=== PATIENT | female | born 1950 | race Caucasian/White ===

== ENCOUNTER 2017-03-21 14:58 | Inpatient (IN) | payer SELFPAY ==
[~2017-03-21] VITALS: Ht 160 cm; Wt 75.0 kg
[~2017-03-21 14:58] MED LIST: ISON300T4 PO; LEVO100T5 PO; RIFA300C3 PO; VITA1CAP PO
[2017-03-21] MEDS ORDERED: ASPIRIN 81 MG TABLET CHEW ONE (15:09)
[2017-03-21 15:28] LABS: HEMATOCRIT 44.7 % (34.6-47.8); HEMOGLOBIN 15.2 g/dL (11.7-16.4); WHITE BLOOD COUNT 5.2 x10^3/uL (3.4-10)
[2017-03-21] MEDS ORDERED: ASPIRIN 81 MG TABLET CHEW PO ONE (15:30)
[2017-03-21] MEDS ORDERED: SODIUM CHLORIDE FLUSH 10ML SYR IVF ONE (15:30)
[2017-03-21] MEDS ORDERED: SODIUM CHLORIDE 0.9% 1,000ML IVBOLUS ONE (15:30)
[2017-03-21 15:35] LABS: BLOOD UREA NITROGEN 13 mg/dL (7-18)
[2017-03-21 15:48] LABS: IS PT STATUS REG ER OR PRE ER? YES
[2017-03-21] MEDS ORDERED: POTASSIUM CHLORIDE 40 MEQ in SODIUM CHLORIDE 0.9% 500 ML IV ONE (16:00)
[2017-03-21] MEDS ORDERED: POTASSIUM CHLORIDE 20 MEQ TAB.ER.PRT PO ONE (16:00)
[2017-03-21] MEDS ORDERED: POTASSIUM CHLORIDE 20 MEQ TAB.ER.PRT ONE (16:22)
[2017-03-21] MEDS ORDERED: NS + 20MEQ KCL 1,000 ML IV SCH (16:35)
[2017-03-21] MEDS ORDERED: ONDANSETRON 2MG/ML, 2ML IVPush PRN (17:00)
[2017-03-21] MEDS ORDERED: ACETAMINOPHEN 325 MG TABLET PO PRN (17:00)
[2017-03-21] MEDS ORDERED: POLYETHYLENE GLYCOL 17 GM PACKET PO PRN (17:00)
[2017-03-21] MEDS ORDERED: DOCUSATE 100 MG CAPSULE PO PRN (17:00)
[2017-03-21] MEDS ORDERED: morphine SULFATE 10 MG/ML, 1ML IVPush PRN (17:00)
[2017-03-21 18:46] VITALS: BP 113/67
[2017-03-21] MEDS: HYDROcodone/APAP 5/325 TABLET PO PRN (21:13)
[2017-03-22 00:31] VITALS: BP 100/60
[2017-03-22 05:55] LABS: BLOOD UREA NITROGEN 12 mg/dL (7-18)
[2017-03-22 07:09] VITALS: BP 104/65
[2017-03-22] MEDS: SENNA/DOCUSATE TABLET PO SCH (08:30)
[2017-03-22] MEDS: HYDROcodone/APAP 5/325 TABLET PO PRN ×2 (09:17→16:27)
[2017-03-22] MEDS ORDERED: POTASSIUM CHLORIDE 20 MEQ TAB.ER.PRT PO ONE (11:30)
[2017-03-22 11:52] VITALS: BP_SYST 116; BP_SYST 120; BP_SYST 96; BP_DIAS 57; BP_DIAS 65; BP_DIAS 73
[2017-03-22] MEDS ORDERED: CHLO25TA PO (12:48)
[2017-03-22 13:52] VITALS: BP 130/68
[2017-03-22 20:00] VITALS: BP 101/57
[2017-03-23] MEDS: HYDROcodone/APAP 5/325 TABLET PO PRN (01:08)
[2017-03-23 01:14] VITALS: BP 102/66
[2017-03-23 06:24] LABS: BLOOD UREA NITROGEN 12 mg/dL (7-18)
[2017-03-23] MEDS ORDERED: POTA10TA11 PO (06:48)
[2017-03-23 07:41] VITALS: BP 96/50
[2017-03-23] MEDS: SENNA/DOCUSATE TABLET PO SCH (08:43)
== END 2017-03-23 10:30 | disposition home or self-care (01) | DRG 312 ==
LOC: SUATTDRO 16:02 → ED 16:02 → EDIP 16:03 → ED 16:19 → 5SO 16:59
PROVIDERS: ADMIT Family Medicine; ATTEND Family Medicine
DX: R55 Syncope and collapse (principal); I95.9 Hypotension, unspecified; E03.9 Hypothyroidism, unspecified; E87.6 Hypokalemia; I10 Essential (primary) hypertension; R32 Unspecified urinary incontinence; Z79.82 Long term (current) use of aspirin
CPT/HCPCS: 36415; 71010; 80048; 82040; 83735; 84439; 84443; 84484; 85025; 93005; 99285; J3480; J7030; J7040